=== PATIENT | female | born 1955 | race Hispanic/Latino ===

== ENCOUNTER 2016-11-01 09:04 | Day surgery (SDC) | payer MEDICAID ==
[2016-11-01 09:32] VITALS: RESP 18
[2016-11-01 09:34] VITALS: BMI 23.8
[2016-11-01] MEDS ORDERED: Lactated Ringer's 1,000 ML IV ONE ×2 (09:40)
[2016-11-01] MEDS: Iohexol 300 10 ML ONE ×2 (09:47→10:15)
[2016-11-01] MEDS: Bupivacaine HCl 0.25% PF (10 ml) Inj ONE ×2 (09:47→10:15)
[2016-11-01] MEDS: methylPREDNISolone Depo 80 mg/ml Inj ONE ×2 (09:48→10:15)
[2016-11-01] MEDS: Lidocaine 1% Inj (20ml) ONE ×2 (09:48→10:15)
[2016-11-01] MEDS ORDERED: Propofol 10 mg/ml Inj (20 ML) ONE ×2 (09:59→10:07)
[2016-11-01] MEDS ORDERED: Bupivacaine HCl 0.25% PF (10 ml) Inj ONE (10:04)
[2016-11-01] MEDS ORDERED: HYDROmorphone 0.5 mg/0.5 ml ISec IVP PRN (10:49)
[2016-11-01 11:00] VITALS: O2SAT 100
[2016-11-01] MEDS ORDERED: Lactated Ringer's 1,000 ML IV SCH (11:00)
[2016-11-01] MEDS ORDERED: HYDROmorphone 0.5 mg/0.5 ml ISec IVP ONE ×2 (11:15→11:45)
[2016-11-01 14:05] VITALS: BP 112/67; PULSE 74; TEMP 97.4
--- NOTE | 2016-11-01 14:41 | RAD ---
PROCEDURE: Lumbar Epidural Injection HISTORY: PAIN MANAGEMENT TECHNIQUE: Fluoroscopic guidance was provided for epidural injection for pain management purposes. FINDINGS: IMPRESSION: Fluoroscopic guidance provided for epidural injection. Please refer procedure.
--- NOTE | 2016-11-01 17:54 | OP ---
PROCEDURE DATE: 11/01/2016 PREOPERATIVE DIAGNOSIS: Left leg complex regional pain syndrome. POSTOPERATIVE DIAGNOSIS: Left leg complex regional pain syndrome. PROCEDURE: Left lumbar sympathetic nerve block at L2 and L3. ANESTHESIOLOGIST: Dr. Tucker. SURGEON: Dr. Liang. ANESTHESIA TYPE: Monitored anesthesia care. COMPLICATIONS: None. SPECIMEN: None. PROCEDURE: After re-discussion of the procedure with the patient including its risks, benefits, alte rnatives, outcome data, possibility of no effect or increased pain, the patient consented to the proc edure. She denies any recent infections, bleeding tendencies, or being on anticoagulants. The decis ion was then made to proceed to the OR. The patient was placed on the fluoroscopy table in a prone position with 2 pillows underneath her abd omen. The back was prepped and draped in a usual sterile fashion and sterile technique was adhered t o during the entire procedure. The L2 and L3 vertebral levels were first identified in anterior-post erior view. Then, slight oblique angle towards the left at approximately 12 degrees was obtained to identify the safety triangle for this procedure. The triangle consists of anterior border of the christian tebral body on the lateral side and the transverse process in the inferior side and the superior nigel cular process on the medial side. The skin overlying the triangle at both L2 and L3 levels was then infiltrated with 1% lidocaine using a 25 gauge needle. Subsequently, a 22 gauge 5 inch spinal needle was then incrementally advanced under fluoroscopic guidance towards the target until bony contact wa s made. At this point, the fluoroscopy was returned to and anteroposterior view, which showed the ti p of the needle to be at the lateral border of the vertebral body. The fluoroscopy was then turned t owards a lateral view and the needle advancement was done in this orientation until the tip of the ne edle lay within 0.5 cm anterior to the anterior border of the vertebral body. Then the fluoroscope r eturned to the anteroposterior view showing the tip of the needle to be underneath the pedicle at bot h levels. After appropriate placement of both needles, approximately 1 mL of Isovue contrast was inj ected showing appropriate spread without any signs of CSF or intravenous involvement. At this point, approximately 10 mL of ____% Marcaine mixed with Depo-Medrol was gradually injected in 3 mL interval s into each level. At the end of the case, needles were removed and patient's back was clean and dry and Band-Aids were applied. The patient was then transferred to recovery area in good condition without any signs of FOLDER AND NOTCHER toxicity or any neurological deficits. She will have a followup in office in approximately 2-4 weeks. En-Zach Liang MD cc: [id number] TT: 11/01/2016 17:53:32 jn
== END 2016-11-01 14:30 | disposition home or self-care (01) ==
LOC: H.OPSURG 09:04
PROVIDERS: ATTEND Anesthesiology
DX: G90.50 Complex regional pain syndrome I, unspecified (principal)

== ENCOUNTER 2016-12-13 09:52 | Day surgery (SDC) | payer MEDICAID ==
[2016-12-13 10:32] VITALS: BMI 24.3
[2016-12-13 10:36] VITALS: RESP 18
[2016-12-13] MEDS ORDERED: methylPREDNISolone Depo 80 mg/ml Inj ONE (12:56)
[2016-12-13] MEDS ORDERED: Lidocaine 1% Inj (20ml) ONE (12:57)
[2016-12-13] MEDS ORDERED: Bupivacaine HCl 0.25% PF (10 ml) Inj ONE (12:57)
[2016-12-13] MEDS ORDERED: Iohexol 300 10 ML ONE (12:57)
[2016-12-13] MEDS ORDERED: Lidocaine 1% Inj (20ml) IJ ONE (13:42)
[2016-12-13] MEDS ORDERED: Lactated Ringer's 1,000 ML IV ONE (13:44)
[2016-12-13] MEDS ORDERED: methylPREDNISolone Depo 80 mg/ml Inj IM ONE (13:44)
[2016-12-13] MEDS ORDERED: Bupivacaine HCl 0.25% PF (10 ml) Inj IJ ONE (13:44)
[2016-12-13] MEDS ORDERED: Iohexol 300 10 ML IJ ONE (13:44)
[2016-12-13] MEDS ORDERED: HYDROmorphone 0.5 mg/0.5 ml ISec ONE (14:11)
[2016-12-13] MEDS: HYDROmorphone 0.5 mg/0.5 ml ISec IVP PRN ×2 (14:25→14:58)
[2016-12-13] MEDS ORDERED: Lactated Ringer's 1,000 ML IV SCH (14:27)
[2016-12-13 15:22] VITALS: TEMP 97.8
[2016-12-13 15:39] VITALS: BP 142/76; PULSE 85; O2SAT 98
--- NOTE | 2016-12-13 15:59 | RAD ---
PROCEDURE: Epidural spine injection HISTORY: PAIN MANAGEMENT COMPARISON: None TECHNIQUE: Standard protocol for this study/examination. FINDINGS: Total fluoroscopic time (continuous mode) utilized during the procedure: 27.9 seconds. IMPRESSION: Submitted images from the current procedure: 1.0
--- NOTE | 2016-12-15 07:57 | PCM.OP ---
Operative Report - Operative Report Date of Surgery/Procedure: 12/13/16 Time of Surgery/Procedure: 14:30 Surgeon: Garth Anesthesia/Sedation: Monitored Anesthesia Care Pre-Operative Diagnosis: Left arm CRPS Post-Operative Diagnosis: Same Indication for Surgery: Intractable Pain Operative Findings: After discussion of the procedure with the patient including its risks benefits alternatives the possibility of no effect or increased pain, patient consented to the procedure. She denies any recent infections bleeding tendencies or being on anticoagulants decision was then made to proceed to the OR. The patient was placed on a fluoroscopy table in a supine position with shoulder mobility between her shoulder blades. The left neck was then prepped and draped in the usual sterile fashion and sterile technique was psychiatric entire procedure. The left moderate of the left stellate ganglion block as at the intersection of the vertebral body and transverse process C6 vertebrae. This was identified on the anterior and posterior view of the fluoroscopy. The skin overlying this area was infiltrated with 1% lidocaine using a 25-gauge needle. Subsequently a 25-gauge 3-1/2 inch spinal needle was then inserted perpendicular to the skin until bony contact was made. Care was used to infiltrate the trachea and esophagus and also in the blood vessels. This was confirmed by negative aspiration treating the advancement of the needle. After bony contact with the target was made and after negative aspiration approximately 1 mL of Isovue contrast was injected showing appropriate spread without any signs of CSF or intravenous informant. There were also no air aspirated back. At this point approximately 10 mL over 30 % Marcaine and Depo-Medrol mixture was gradually injected under fluoroscopy view. At the end of the procedure needles was removed the patient's neck was cleaned and dried Band-Aids were applied. Patient was transferred to recovery area in good conditions without any signs of COTTON EXPERT toxicity or any neurological deficit. She'll follow up in office in approximately 2-4 weeks. End of dictation Procedure/Operation Description: Left Stellate Ganglion block Estimated Blood Loss: None. Complications: None. Discharge & Condition: Stable for discharge to home.
== END 2016-12-13 16:20 | disposition home or self-care (01) ==
LOC: H.OPSURG 09:52
PROVIDERS: ATTEND Anesthesiology
DX: G90.50 Complex regional pain syndrome I, unspecified (principal)

== ENCOUNTER 2017-03-07 10:41 | Day surgery (SDC) | payer MEDICAID ==
[2017-03-07 11:05] VITALS: RESP 18
[2017-03-07] MEDS ORDERED: Dexamethasone 4 mg/1 ml ONE (11:13)
[2017-03-07] MEDS ORDERED: Bupivacaine HCl 0.25% PF (10 ml) Inj ONE (11:13)
[2017-03-07] MEDS ORDERED: Iohexol 300 10 ML ONE (11:13)
[2017-03-07 11:14] VITALS: BMI 23.5
[2017-03-07] MEDS ORDERED: Propofol 10 mg/ml Inj (20 ML) ONE (11:25)
[2017-03-07] MEDS ORDERED: Lactated Ringer's 1,000 ML IV ONE (11:33)
[2017-03-07] MEDS ORDERED: Midazolam 2 MG/2 ML VIAL ONE (11:34)
[2017-03-07] MEDS ORDERED: Bupivacaine HCl 0.25% PF (10 ml) Inj IJ ONE (11:45)
[2017-03-07] MEDS ORDERED: Iohexol 300 10 ML IJ ONE (11:45)
[2017-03-07] MEDS ORDERED: Lidocaine 4% MPF 5 ML IJ ONE (11:45)
[2017-03-07] MEDS ORDERED: HYDROmorphone 0.5 mg/0.5 ml ISec ONE (12:12)
[2017-03-07] MEDS: HYDROmorphone 0.5 mg/0.5 ml ISec IVP PRN ×4 (12:12→12:53)
--- NOTE | 2017-03-07 14:38 | RAD ---
PROCEDURE: Cervical epidural injection HISTORY: PAIN MANAGEMENT COMPARISON: None TECHNIQUE: Standard protocol for this study/examination. FINDINGS: Total fluoroscopic time (continuous mode) utilized during the procedure: 23.7 seconds. Submitted images from the current procedure: 2.0 IMPRESSION: Less than 1 hr fluoroscopic time utilized during performance of the procedure.
[2017-03-07 15:57] VITALS: BP 120/60; PULSE 74; TEMP 97.2; O2SAT 100
--- NOTE | 2017-03-07 20:16 | OP ---
PROCEDURE DATE: 03/07/2017 PREOPERATIVE DIAGNOSIS: Left arm and face complex regional pain syndrome. POSTOPERATIVE DIAGNOSIS: Left arm and face complex regional pain syndrome. PROCEDURES: Left sphenopalatine ganglion block and left stellate ganglion block. ANESTHESIA ADMINISTERED BY: Dr. Kurtz. SURGEON: Dr. Liang. TYPE OF ANESTHESIA: Monitored anesthesia care. COMPLICATIONS: None. SPECIMEN: None. DESCRIPTION OF PROCEDURE: After re-discussion of the procedure with the patient including its risks, benefits, alternatives, outcome data, possibility of no effect or increased pain, the patient consented to the procedure. She denied any recent infection, bleeding tendencies or being on anticoagulants; a decision was then made to proceed to the OR. The patient was placed on a fluoroscopy table in a supine position with a shoulder roll underneath her shoulder blades. The neck was prepped and draped in the usual sterile fashion and sterile technique was adhered during the entire procedure. The skin overlying the C6 pedicle was then infiltrated with 1% lidocaine using a 25-gauge needle. The target of this injection was at the transition point of the vertebral body and the transverse process on the left C6 pedicle. A 25-gauge 3-1/2-inch spinal needle was then incrementally advanced under fluoroscopic guidance until bony contact was made with the target region. Care was taken to not encroach upon the space of the trachea, esophagus and also, pulsatile arterial pulse of the left carotid. After appropriate placement of the needle, approximately 1 mL of Isovue contrast was injected showing appropriate spread without any signs of CSF or intravenous involvement. At this point approximately, 10 mL of a 0.25% Marcaine and Decadron mixture was gradually injected. Slight pressure was applied proximal to the needle to further enhance the medication spread down to the thoracic region. The needle was then removed. At this point, a 1-1/2-inch Angiocath attached to a 3 mL syringe was then carefully inserted into the patient's left naris. At the sign of first resistance, approximately 1 mL of 4% lidocaine was gently applied through the angiocatheter. The patient's neck and head were maintained in an extended position for approximately 5 minutes after the application of the medication. At the end of the case, the patient's neck was then cleaned and dried and bandage was applied. The patient was then transferred to recovery area in good condition without any signs of TRAY FILLER toxicity or any neurological deficit. She will have a followup in office in approximately 2-5 weeks. En-Zach Liang MD
== END 2017-03-07 15:45 | disposition home or self-care (01) ==
LOC: H.OPSURG 10:41
PROVIDERS: ATTEND Anesthesiology
DX: G90.50 Complex regional pain syndrome I, unspecified (principal)
CPT/HCPCS: 64505; 64510; J1100; J1170; J2250; J2405; J2704; J3010; J7120; J8540; Q9967

== ENCOUNTER 2017-08-24 10:58 | Day surgery (SDC) | payer MEDICAID ==
[2017-08-24] MEDS ORDERED: Iohexol 300 10 ML ONE (11:49)
[2017-08-24] MEDS ORDERED: Bupivacaine HCl 0.25% PF (10 ml) Inj ONE (11:50)
[2017-08-24] MEDS ORDERED: MethylPREDNISolone Depo 40 mg/ml Inj ONE (11:50)
[2017-08-24] MEDS ORDERED: Lidocaine 1% Inj (20ml) ONE (11:50)
[2017-08-24 12:01] VITALS: BMI 25.5
[2017-08-24] MEDS ORDERED: Midazolam 2 MG/2 ML VIAL ONE (12:19)
[2017-08-24] MEDS ORDERED: Propofol 10 mg/ml Inj (20 ML) ONE (12:19)
[2017-08-24] MEDS ORDERED: Sodium Chloride 0.9% 500 ML IV ONE (12:20)
[2017-08-24] MEDS ORDERED: HYDROmorphone 0.5 mg/0.5 ml ISec ONE (12:50)
[2017-08-24] MEDS: HYDROmorphone 0.5 mg/0.5 ml ISec IVP PRN ×3 (12:55→13:25)
--- NOTE | 2017-08-24 14:04 | RAD ---
PROCEDURE: Intraoperative Fluoroscopy. HISTORY: PAIN MANAGEMENT FINDINGS: Fluoroscopic assistance was provided. 22. Seconds of fluoroscopy time utilized during this procedure. Radiation dose = 4.7 mGy. Please refer to the operative report from ROBERT Menchaca.
[2017-08-24 14:21] VITALS: RESP 18; TEMP 98; O2SAT 96
[2017-08-24 15:30] VITALS: BP 120/70; PULSE 63
--- NOTE | 2017-08-24 19:39 | OP ---
PROCEDURE DATE: 08/24/2017 PREOPERATIVE DIAGNOSIS: Right arm complex regional pain syndrome. POSTOPERATIVE DIAGNOSIS: Right arm complex regional pain syndrome. PROCEDURE: Right stellate ganglion block. SURGEON: Lacey Liang MD TYPE OF ANESTHESIA: Monitored anesthesia care. ANESTHESIA ADMINISTERED BY: Dr. Kurtz. COMPLICATIONS: None. SPECIMEN: None. DESCRIPTION OF PROCEDURE: After we had discussion of the procedure with the patient including its risks, benefits, alternatives, outcome data, possibility of no effects or increased pain, the patient consented to the procedure. She denies any recent infection, bleeding tendencies or being on anticoagulants and decision was then made to proceed to the OR. The patient was placed on the fluoroscopy table in a supine position with shoulder roll underneath her shoulder . The neck was prepped and draped in a usual sterile fashion and sterile technique was adhered during the entire procedure. The target for the stellate ganglion block is at the border of the vertebral body and the transverse process at the level of C6 on the right side. The skin overlying this area was then infiltrated with 1% lidocaine. Then, a 25-gauge inch spinal needle was incrementally advanced under fluoroscopic guidance until bony contact was made with the target. Care was taken to avoid the carotid pulse and also from midline structures such as esophagus and trachea. After appropriate placement of the needle, approximately 1 mL of Isovue contrast was injected to rule out any inadvertent uptake of contrast. After satisfactory spread of the contrast down to the T1 level approximately 10 mL of 0.25% Marcaine and Depo-Medrol mixture was gradually injected. At the end of procedure, the needle was removed and the patient's neck was cleaned and dried and bandages were applied. The patient was then transferred to the recovery area in good condition without any signs of TEAR DOWN MAN toxicity or any neurological deficits. She will be following in the office in approximately 2 to 4 weeks. Lacey Liang MD
== END 2017-08-24 15:15 | disposition home or self-care (01) ==
LOC: H.OPSURG 10:58
PROVIDERS: ATTEND Anesthesiology
DX: G90.50 Complex regional pain syndrome I, unspecified (principal)
CPT/HCPCS: 64510; J1030; J1170; J2001; J2250; J2704; J3010; J7040; Q9967

== ENCOUNTER 2017-09-28 06:36 | Day surgery (SDC) | payer MEDICAID ==
[2017-09-28 07:34] VITALS: BMI 25.8
[2017-09-28] MEDS ORDERED: Lactated Ringer's 1,000 ML IV ONE (08:00)
[2017-09-28] MEDS ORDERED: methylPREDNISolone Depo 80 mg/ml Inj ONE (08:04)
[2017-09-28] MEDS ORDERED: Iohexol 300 10 ML ONE (08:05)
[2017-09-28] MEDS ORDERED: Lidocaine Hydrochloride 1% 10 ML ONE (08:06)
[2017-09-28] MEDS ORDERED: Bupivacaine HCl 0.5% PF (30 ml) Inj ONE (08:13)
[2017-09-28] MEDS ORDERED: Propofol 10 mg/ml Inj (20 ML) ONE (08:16)
[2017-09-28] MEDS ORDERED: Iohexol 300 10 ML IJ ONE (08:20)
[2017-09-28] MEDS ORDERED: methylPREDNISolone Depo 80 mg/ml Inj IM ONE (08:20)
[2017-09-28] MEDS ORDERED: Bupivacaine HCl 0.25% PF (10 ml) Inj IJ ONE (08:20)
[2017-09-28] MEDS ORDERED: Lidocaine 1% Inj (20ml) IJ ONE (08:20)
[2017-09-28] MEDS ORDERED: Morphine 4 MG/ML VIAL ONE (08:56)
[2017-09-28] MEDS ORDERED: Lactated Ringer's 1,000 ML IV SCH (09:15)
[2017-09-28 11:12] VITALS: TEMP 97.5
[2017-09-28 11:18] VITALS: BP 119/85; PULSE 83; RESP 20
--- NOTE | 2017-09-28 13:54 | OP ---
PROCEDURE DATE: 09/28/2017 PREOPERATIVE DIAGNOSES: Right lower leg complex regional pain syndrome and left-sided headache. PROCEDURE: Right lumbar sympathetic nerve block and also left sphenopalatine nerve block. SURGEON: Lacey Liang MD ANESTHESIOLOGIST: Godwin Leung MD TYPE OF ANESTHESIA: Monitored anesthesia care. COMPLICATIONS: None. SPECIMENS: None. DESCRIPTION OF PROCEDURE: As follows. After we had discussion of the procedure with the patient including its risks, benefits, alternatives, outcome data, possibility of no effects, and increased pain, the patient consented to the procedure. She denied any recent infection, bleeding tendencies or being on anticoagulants, the decision was then made to proceed to the OR. The patient was placed on a fluoroscopy table in a prone position with 2 pillows underneath her abdomen. The back was prepped and draped in a usual sterile fashion and a sterile technique was adhered to during the entire procedure. The target of the block is at the L1 and L2 vertebral levels. After those two vertebral levels were identified, towards the right at approximately 15 degrees was obtained and the target is at the superolateral quadrant of the vertebral body flanked by the superior articular process to the left and transverse process towards the bottom. The skin overlying the two above-targeted areas was infiltrated with 1% lidocaine using a 25-gauge needle. Subsequently, a 22-gauge 5 inch spinal needle was incrementally advanced under fluoroscopic guidance until tip of needle made bony contact with the vertebral body. Care was taken to avoid the spinal cord stimulator battery during the insertion of the two needles. After bony contact was made, a quick anterior-posterior view was obtained to verify the needle positioning. Then, the needle advancement was done under lateral fluoroscopy view. The needle was advanced slowly until tip of the needle is approximately 5 mm above the anterior vertebral body on the lateral fluoroscopy view. Then, the anterior-posterior view was obtained to verify the needle to the slightly medial to the pedicle at both vertebral bodies. After negative aspiration, approximately 0.5 mL of Isovue contrast was injected showing appropriate spread without any signs of intravenous involvement. At this point, approximately 10 mL of 0.25% Marcaine and Depo-Medrol mixture was injected slowly into each needle. The needle was then removed. The patient was then transferred onto the stretcher in a supine position. Q-tip soaked with 0.5% Marcaine was then carefully inserted into the patient's left naris until resistance was met. Then it was left in place for approximately 10 minutes, it was removed, and the patient was then transferred to the recovery area in good condition without any signs of MANAGER PRICING toxicity or any signs of neurological deficits. At this point, she will be discharged with a followup in our office in approximately 2 to 4 weeks. En-Zach Liang MD
[2017-09-28 14:25] VITALS: O2SAT 97
--- NOTE | 2017-10-01 08:19 | RAD ---
PROCEDURE: Lumbar Epidural Injection HISTORY: PAIN MANAGEMENT TECHNIQUE: Fluoroscopic guidance was provided for epidural injection for pain management purposes. 62.2 seconds of fluoroscopy was utilized with a cumulative radiation dose of 20.06 mGy. FINDINGS: Spot fluoroscopic images demonstrate opacification in the region of the left lateral epidural space at the approximate T 12, L1 and L2 levels. IMPRESSION: Fluoroscopic guidance provided for epidural injection. Please refer to the report from ROBERT Menchaca for further elaboration on the procedure.
== END 2017-09-28 13:00 | disposition home or self-care (01) ==
LOC: H.OPSURG 06:36
PROVIDERS: ATTEND Anesthesiology
DX: G90.50 Complex regional pain syndrome I, unspecified (principal); G24.9 Dystonia, unspecified
CPT/HCPCS: 64505; 64520; J1040; J2001; J2270; J2704; J3010; J7120; Q9967

== ENCOUNTER 2017-11-09 08:10 | Day surgery (SDC) | payer MEDICAID ==
[2017-11-09] MEDS ORDERED: Dexamethasone 4 mg/1 ml ONE (08:44)
[2017-11-09] MEDS ORDERED: Bupivacaine HCl 0.25% PF (10 ml) Inj ONE (08:45)
[2017-11-09] MEDS ORDERED: Iohexol 300 10 ML ONE (08:45)
[2017-11-09] MEDS ORDERED: Lidocaine 1% 5ml Abboject IV ONE (08:46)
[2017-11-09] MEDS ORDERED: Midazolam 2 MG/2 ML VIAL ONE (08:46)
[2017-11-09] MEDS ORDERED: Propofol 10 mg/ml Inj (20 ML) ONE (08:46)
[2017-11-09 08:57] VITALS: BMI 25.0
[2017-11-09] MEDS ORDERED: Lactated Ringer's 1,000 ML IV ONE ×2 (09:08→11:05)
[2017-11-09] MEDS ORDERED: Bupivacaine HCl 0.25% PF (10 ml) Inj IJ ONE (09:17)
[2017-11-09] MEDS ORDERED: Dexamethasone 4 mg/1 ml IM ONE (09:17)
[2017-11-09] MEDS ORDERED: Iohexol 300 10 ML IJ ONE (09:17)
[2017-11-09] MEDS ORDERED: HYDROmorphone 0.5 mg/0.5 ml ISec IVP PRN (09:25)
[2017-11-09] MEDS ORDERED: Lactated Ringer's 1,000 ML IV SCH ×3 (09:30→10:25)
[2017-11-09 12:46] VITALS: RESP 18
[2017-11-09 13:29] VITALS: BP 120/60; PULSE 80; TEMP 98; O2SAT 99
--- NOTE | 2017-11-09 13:34 | OP ---
PROCEDURE DATE: 11/09/2017 PREOPERATIVE DIAGNOSIS: Left face and arm complex regional pain syndrome. POSTOPERATIVE DIAGNOSIS: Left face and arm complex regional pain syndrome. PROCEDURE: Left stellate ganglion block and left sphenopalatine nerve block. SURGEON: Lacey Liang MD ANESTHESIOLOGIST: Paulino Hernandez MD TYPE OF ANESTHESIA: Monitored anesthesia care. COMPLICATIONS: None. SPECIMENS: None. DESCRIPTION OF PROCEDURE: As follows. After we had discussion of the procedure with the patient including its risks, benefits, alternatives, outcome data, possibility of no effect or increased pain, the patient consented to the procedure. She denied any recent infection, bleeding tendencies or being on anticoagulants; a decision was then made to proceed to the OR. The patient was placed on a fluoroscopy table in a supine position with a shoulder roll underneath her shoulder blades. The neck was prepped and draped in the usual sterile fashion and sterile technique was adhered during the entire procedure. Under the anterior and posterior view, the C6 vertebrae on the left side was identified. The target is at the border of the transverse process on the left side. Care was taken to avoid the trachea and esophagus drained the insertion of the needle. After identification of the target, the skin overlying this area was then infiltrated with 1% lidocaine using 25-gauge needle. Subsequently, a 25-gauge 3.5-inch spinal needle was incrementally advanced under fluoroscopic guidance until the tip of the needle made bony contact with the target area. Aspiration was carried out and did not return any blood and CSF. At this point, approximately 1 mL of Isovue contrast was injected showing appropriate spread without any signs of CSF or intravenous uptake. At this point, approximately 10 mL of Decadron and 0.25% Marcaine mixture was gradually injected. At the end of the procedure, the needle was removed. Then, using a Q-tip, which was soaked with lidocaine, the Q-tip was inserted into the left naris until resistance was met. The Q-tip was left in place for approximately 5 minutes for the sphenopalatine ganglion block. The Q-tip was then removed and the patient's neck was cleaned and dried, and bandage was applied. The patient was then transferred to recovery area in good condition without any signs of SANDING SUPERVISOR toxicity or any neurological deficits. She will a followup in our office in approximately 2 to 4 weeks. EnAngel Liang MD [facility] # [id number]
--- NOTE | 2017-11-13 13:07 | RAD ---
PROCEDURE: Fluoroscopy up to 1 hr. HISTORY: PAIN MANAGEMENT COMPARISON: None TECHNIQUE: Standard protocol for this study/examination. FINDINGS: Total fluoroscopic time (continuous mode) utilized during the procedure 29.7 (seconds). Total exam DLP: (mGy) 5.53 IMPRESSION: Less than 1 hr fluoroscopic time utilized during performance of the procedure.
== END 2017-11-09 15:00 | disposition home or self-care (01) ==
LOC: H.OPSURG 08:10
PROVIDERS: ATTEND Anesthesiology
DX: G90.50 Complex regional pain syndrome I, unspecified (principal)
CPT/HCPCS: 64510; J1100; J1170; J2250; J2704; J7120; Q9967

== ENCOUNTER 2018-02-27 09:39 | Day surgery (SDC) | payer MEDICAID ==
[2018-02-27 10:15] VITALS: BMI 24.1
[2018-02-27] MEDS ORDERED: Iohexol 300 10 ML ONE (10:15)
[2018-02-27] MEDS ORDERED: MethylPREDNISolone Depo 40 mg/ml Inj ONE (10:15)
[2018-02-27] MEDS ORDERED: Midazolam 2 MG/2 ML VIAL ONE (10:41)
[2018-02-27] MEDS ORDERED: Lidocaine 1% 5ml Abboject IV ONE (10:41)
[2018-02-27] MEDS ORDERED: Propofol 10 mg/ml Inj (20 ML) ONE (10:41)
[2018-02-27] MEDS ORDERED: Lactated Ringer's 1,000 ML IV ONE (10:45)
[2018-02-27] MEDS ORDERED: Bupivacaine 0.5% Inj(30mL) IJ ONE (11:00)
[2018-02-27] MEDS ORDERED: Lactated Ringer's 1,000 ML IV SCH (11:15)
[2018-02-27 12:32] VITALS: PULSE 80
[2018-02-27 12:44] VITALS: BP 129/89; RESP 18; TEMP 97.8; O2SAT 99
--- NOTE | 2018-02-27 22:57 | OP ---
PROCEDURE DATE: 02/27/2018 PREOPERATIVE DIAGNOSIS: Left arm and face complex regional pain syndrome. POSTOPERATIVE DIAGNOSIS: Left arm and face complex regional pain syndrome. PROCEDURE: Left stellate ganglion nerve block and left sphenopalatine ganglion block. ANESTHESIA ADMINISTERED BY: Paulino Hernandez MD SURGEON: Lacey Liang MD TYPE OF ANESTHESIA: Monitored anesthesia care. COMPLICATIONS: None. SPECIMEN: None. DESCRIPTION OF PROCEDURE: After we had discussion of the procedure with the patient including its risks, benefits, alternatives, outcome data, and possibility of no effect or increased pain, the patient consented to the procedure. She denies any recent infection, bleeding tendencies, or being on anticoagulants. A decision was then made to proceed to the OR. The patient was placed on the fluoroscopic table in a supine position with A shoulder roll underneath her shoulder blades. The neck was prepped and draped in the usual sterile fashion, and a sterile technique was adhered during the entire procedure. The target is at C6 vertebral level at the border of transverse process and the vertebral body. The vital structures were palpated and care was taken not to puncture these structures. The skin overlying this area was then infiltrated with 1% lidocaine using a 25-gauge needle. Subsequently, a 25-gauge 3-1/2-inch spinal needle was inserted perpendicular to the skin until bony contact was made with the C6 vertebral body along the transverse process on the left side. After negative aspiration for blood or air, approximately 1 mL of Isovue contrast was injected showing appropriate spread without any signs of CSF or intravenous uptake. After appropriate placement of the needle, approximately 12 mL of 0.25% Marcaine and Depo-Medrol mixture was gradually injected. The needle was then removed. Then Q-tip was soaked in 0.5% Marcaine, and this was inserted into the left naris until resistance was met. The Q-tip was then kept in position for approximately 5 minutes. Then it was removed in the Recovery subsequently. At the end of procedure, the patient tolerated the procedure well and the neck was cleaned and dried and bandage was applied. The patient was then transferred to the recovery area in good condition without any signs of HARDBOARD SUPERVISOR toxicity or any neurological deficit. She will be following in the office in approximately two to four weeks. En-Zach Liang MD [facility] # [id number]
--- NOTE | 2018-02-28 14:25 | RAD ---
Date of service: 02/27/2018 PROCEDURE: Fluoroscopy up to 1 hr. HISTORY: PAIN MANAGEMENT COMPARISON: None TECHNIQUE: Standard protocol for this study/examination. FINDINGS: Total fluoroscopic time (continuous mode) utilized during the procedure 60.3 (seconds). Total exam DLP: 5.97 (mGy). IMPRESSION: Less than 1 hr fluoroscopic assistance provided during performance of the procedure.
== END 2018-02-27 14:10 | disposition home or self-care (01) ==
LOC: H.OPSURG 09:39
PROVIDERS: ATTEND Anesthesiology
DX: G90.512 Complex regional pain syndrome I of left upper limb (principal); M19.90 Unspecified osteoarthritis, unspecified site; K21.9 Gastro-esophageal reflux disease without esophagitis; F41.9 Anxiety disorder, unspecified; G24.9 Dystonia, unspecified
CPT/HCPCS: 64510; J1030; J1170; J2250; J2704; J3010; J7120; Q9967

== ENCOUNTER 2018-06-14 06:08 | Day surgery (SDC) | payer MEDICAID ==
[2018-06-14 07:21] VITALS: BMI 25.0
[2018-06-14] MEDS ORDERED: Bupivacaine HCl 0.5% PF (30 ml) Inj ONE (08:58)
[2018-06-14] MEDS ORDERED: methylPREDNISolone Depo 80 mg/ml Inj ONE (08:58)
[2018-06-14] MEDS ORDERED: Iohexol 300 10 ML ONE (08:59)
[2018-06-14] MEDS ORDERED: Lactated Ringer's 1,000 ML IV ONE (09:15)
[2018-06-14] MEDS ORDERED: Propofol 10 mg/ml Inj (20 ML) ONE ×3 (09:25→09:44)
[2018-06-14] MEDS ORDERED: Iohexol 240 (10 ml) IVP ONE (09:28)
[2018-06-14] MEDS ORDERED: Bupivacaine HCl 0.5% PF (30 ml) Inj IJ ONE (09:28)
[2018-06-14] MEDS ORDERED: methylPREDNISolone Depo 80 mg/ml Inj IM ONE (09:29)
[2018-06-14] MEDS ORDERED: Dexamethasone 4 mg/1 ml IM ONE (09:42)
[2018-06-14] MEDS ORDERED: Dexamethasone 4 mg/1 ml ONE (09:43)
[2018-06-14] MEDS ORDERED: Lactated Ringer's 500 ML IV SCH (10:00)
[2018-06-14] MEDS ORDERED: HYDROmorphone 0.5 mg/0.5 ml ISec ONE ×2 (10:13→10:30)
[2018-06-14 11:50] VITALS: RESP 18
[2018-06-14 13:37] VITALS: BP 151/67; PULSE 88; TEMP 97.8; O2SAT 97
--- NOTE | 2018-06-14 14:34 | RAD ---
Date of service: 06/14/2018 PROCEDURE: Intraoperative Fluoroscopy. HISTORY: PAIN MANAGEMENT FINDINGS: Fluoroscopic assistance was provided. Fluoroscopy time = 102.9 sec. Radiation dose = 23.51 mGy. Please refer to the operative report from ROBERT Menchaca.
--- NOTE | 2018-06-14 20:59 | OP ---
PROCEDURE DATE: 06/14/2018 PREOPERATIVE DIAGNOSIS: Left arm complex regional pain syndrome. POSTOPERATIVE DIAGNOSIS: Left arm complex regional pain syndrome. PROCEDURE: Left stellate ganglion block. SURGEON: Lacey Liang MD ANESTHESIA: Monitored anesthesia care. ANESTHESIOLOGIST: . COMPLICATIONS: None. SPECIMEN: None. DESCRIPTION OF PROCEDURE: Procedure is as follows: After discussion of the procedure with the patient including its risks, benefits, alternatives, outcome data, possibility of no effect or increased pain, the patient consented to the procedure. She denies any recent infection, bleeding tendencies, or being on anticoagulants. Decision was then made to proceed to the OR. The patient was placed on a fluoroscopy table in a supine position with a shoulder roll underneath her chest. The left neck was prepped and draped in the usual sterile fashion and sterile technique was adherent to during the entire procedure. The target of the block is at the junction of the vertebral body and transverse process of the C6 vertebra on the left. The skin overlying this area was then infiltrated with 1% lidocaine using 25-gauge needle. Then, the carotid pulse on the left was palpated and needle placement was made medial to this. After bony contact was made, the needle was withdrawn slightly. At this point, approximately 0.5 mL of Isovue contrast was injected to confirm needle placement. The needle was repositioned until the appropriate contrast spread was obtained. Epidural, CSF, and intravascular involvement was ruled out by the contrast advancement. After appropriate placement of the needle, approximately 10 mL of 0.25% Marcaine and Depo-Medrol mixture was gradually injected. The needle was then removed and the patient's neck was clean and dry bandage was applied. The patient was then transferred to the recovery area in good condition without any signs of MOVIE WRITER toxicity or any neurological deficits. She will be followed in the office in approximately 2-4 weeks. Lacey Liang MD
== END 2018-06-14 15:00 | disposition home or self-care (01) ==
LOC: H.OPSURG 06:08
PROVIDERS: ATTEND Anesthesiology
DX: G90.50 Complex regional pain syndrome I, unspecified (principal); M54.9 Dorsalgia, unspecified
CPT/HCPCS: 64510; J1040; J1100; J1170; J2001; J2704; J7120; Q9966; Q9967

== ENCOUNTER 2018-11-01 13:49 | Observation (INO) | payer MEDICAID ==
[2018-11-01] MEDS ORDERED: Sodium Chloride 0.9% 1,000 ML IV STA (13:59)
--- NOTE | 2018-11-01 14:06 | ED PDOC ---
HPI: General Adult Time Seen by Provider: 11/01/18 13:58 Chief Complaint (Nursing): Palpitations Chief Complaint (Provider): palpitations History Per: Patient History/Exam Limitations: no limitations Onset/Duration Of Symptoms: Days (today) Additional Complaint(s): Pt. was out same day surgery getting an injection by Dr. Liang for her hip. After the procedure pt. HR was going up and down so EKG done and showed afib. Pt. sent to the ER accordingly for further evaluation and treatment. Pt. states for past few weeks she gets chest pain and palpitations off and on when exercising. Pt. also get dizziness with those symptoms. Pt. has no numbness, tingles. Has chronic pain and cramps to legs. Not ambulating much recently due to pain and cramps. No dyspnea, abd pain, nausea, vomit, cough. Never had afib in the past. Past Medical History Reviewed: Nursing Documentation, Vital Signs - Medical History PMH: Anxiety, Back Problems, Chronic Pain Denies: Chronic Kidney Disease Other PMH: CRD - Surgical History Surgical History: Appendectomy, Back Surgery ("Back Fusion"), Cholecystectomy - Family History Family History: States: Unknown Family Hx - Home Medications Home Medications: Ambulatory Orders Medication Instructions Recorded Cholecalciferol (Vitamin D3) 5,000 unit PO DAILY 06/19/14 [Vitamin D3] Hydromorphone HCl [Dilaudid] 4 mg PO Q8 PRN 09/25/14 Amitriptyline [Elavil] 25 mg PO HS 08/16/16 Biotin 3 mg PO BID 11/01/16 Conjugated Estrogens [Premarin] 0.5 mg PO DAILY 11/01/16 Acetaminophen/Oxycodone Hydr 10 - 325 mg PO Q8 09/28/17 [Percocet 10/325 mg Tab] - Allergies Allergies/Adverse Reactions: Allergies Allergy/AdvReac Type Severity Reaction Status Date / Time gabapentin [From Neurontin] Allergy SWELLING Verified 11/01/18 13:54 pregabalin [From Lyrica] Allergy VOMITING Verified 11/01/18 13:54 Review of Systems ROS Statement: Except As Marked, All Systems Reviewed And Found Negative Cardiovascular: Positive for: Chest Pain, Palpitations, Light Headedness Neurological: Positive for: Dizziness Physical Exam - Reviewed Nursing Documentation Reviewed: Yes Vital Signs Reviewed: Yes - Physical Exam Appears: Positive for: Non-toxic, No Acute Distress Head Exam: Positive for: ATRAUMATIC, NORMAL INSPECTION, NORMOCEPHALIC Skin: Positive for: Normal Color, Warm, DRY Eye Exam: Positive for: EOMI, Normal appearance, PERRL ENT: Positive for: Normal ENT Inspection Neck: Positive for: Normal, Painless ROM Cardiovascular/Chest: Positive for: Tachycardia, Irregularly Irregular Respiratory: Positive for: Normal Breath Sounds. Negative for: Respiratory Distress Gastrointestinal/Abdominal: Positive for: Normal Exam, Soft. Negative for: Tenderness Back: Positive for: Normal Inspection. Negative for: L CVA Tenderness, R CVA Tenderness Extremity: Negative for: Normal ROM (decreased due to chronic pains in both legs), Calf Tenderness Neurological/Psych: Positive for: Awake, Alert, Normal Tone, cost recorder II-XII (wnk). Negative for: Facial Droop - Laboratory Results Result Diagrams: 11/01/18 14:17 - ECG ECG: Positive for: Interpreted By Me, Viewed By Me ECG Rhythm: Positive for: Normal QRS, Normal ST Segment, Sinus Rhythm Interpretation Of ECG: EKG in post op: afib. - Progress ED Course And Treament: 1408: Pt. given dilaudid 2.5mg prior to arrival. 1442: Spoke with [facility] resident for Dr. Quinn. Will admit tele. Pt. not in afib. Likely had transient afib. Will hold any additional blood thinners and anti-arrhythmics. Chest pain free. Disposition - Clinical Impression Clinical Impression: Chest pain, Afib - Patient ED Disposition Is Patient to be Admitted: No Counseled Patient/Family Regarding: Studies Performed, Diagnosis - Disposition Disposition Time: 13:54 Condition: FAIR - Pt Status Changed To: Hospital Disposition Of: Observation - POA Present On Arrival: None
[2018-11-01 14:34] LABS: BASO % 0.6 % (0.0-2.0); EOS % 0.8 % (0.0-4.0); LYMPH # 1.6 K/uL (1.0-4.3); LYMPH % 25.2 % (20.0-40.0); MEAN CELL VOLUME 94.1 fl (81.0-99.0); MEAN CORPUSCULAR HEMOGLOBIN 32.2 pg (27.0-31.0); MEAN CORPUSCULAR HGB CONC 34.2 g/dL (33.0-37.0); MEAN PLATELET VOLUME 9.3 fl (7.2-11.7); MONO # 0.4 K/uL (0.0-0.8); MONO % 5.6 % (0.0-10.0); NEUT # 4.3 K/uL (1.8-7.0); NEUT % 67.8 % (50.0-75.0); NRBC % 0.1 % (0.0-0.0); RBC 4.34 Mil/uL (3.80-5.20); RED CELL DISTRIBUTION WIDTH 12.7 % (11.5-14.5); WHITE BLOOD COUNT 6.3 K/uL (4.8-10.8)
[2018-11-01 14:36] LABS: INR 1.1; PROTHROMBIN TIME 12.5 Seconds (9.8-13.1)
[2018-11-01 14:38] LABS: PARTIAL THROMBOPLASTIN TIME 33.4 Seconds (25.6-37.1)
[2018-11-01 14:55] LABS: BLOOD UREA NITROGEN 12 mg/dl (7-17); CALCIUM 8.6 mg/dL (8.4-10.2); GFR NON-AFRICAN AMERICAN > 60
[2018-11-01 15:08] LABS: ALB/GLOB RATIO 1.3 (1.0-2.1); ALBUMIN 4.4 g/dL (3.5-5.0); ALT/SGPT 16 U/L (9-52); AST/SGOT 43 U/L (14-36)
[2018-11-01] MEDS ORDERED: Oxycodone/Acetaminophen 5/325 mg Tab PO PRN (15:28)
--- NOTE | 2018-11-01 16:09 | RAD ---
Date of service: 11/01/2018 HISTORY: Atrial fibrillation. COMPARISON: 06/29/2015 FINDINGS: LUNGS: No active pulmonary disease. PLEURA: No significant pleural effusion identified, no pneumothorax apparent. CARDIOVASCULAR: No atherosclerotic calcification present Normal. OSSEOUS STRUCTURES: No significant abnormalities. VISUALIZED UPPER ABDOMEN: Normal. OTHER FINDINGS: Neuro stimulator device again identified IMPRESSION: No active disease. No significant interval change compared to the prior examination(s).
--- NOTE | 2018-11-01 16:37 | CP.PCM.HP ---
<Jake Zaldivar - Last Filed: 11/01/18 17:56> History of Present Illness - History of Present Illness History of Present Illness: 63 with PMH of CRPS, Anxiety was sent by Dr. Liang after noting A-fib on monitor while patient receiving injection for tx of chronic pain. Patient report that for past week she have been complaining of SOB, palpitation and pressure on chest. Patient report that she was seen by her PCP 1 week ago due to dysuria and was sent with Po abx for 7 days, and since then she have been same symptoms. Patient unsure if this is due to new abx or due to anxiety attack which she have often. Patient also state that for past couple of month she have heat intolerance, and some weight change which she attribute to CRPS. Patient have no complains, she denies fever, chills, nausea, vomiting, cough, abdominal pain, diarrhea, constipaton, or any other symptoms. ALlergy: Gabapentin, Pregabalin PCP: Jon Reaves PMH: CRPS , anxiety Medication: Percocet, dialaudid Social: denies smoking drinking or drug use. ROS: Negative except mentioned. ED Vitals: 66hr, 111/70, RR 17 , 100 ox EKG: A-fib x1, monitor WNL Aspirin 325mg, hydromorphone 2mg IV Fluid Patient admitted to telemetry for evaluation of ACS Present on Admission - Present on Admission Any Indicators Present on Admission: No Review of Systems - Review of Systems All systems: reviewed and no additional remarkable complaints except - Breasts Breasts: As Per HPI - Cardiovascular Cardiovascular: Chest Pain - Respiratory Respiratory: As Per HPI - Gastrointestinal Gastrointestinal: As Per HPI - Genitourinary Genitourinary: As Per HPI - Reproductive: Female Reproductive:Female: As Per HPI - Menstruation Menstruation: As Per HPI - Musculoskeletal Musculoskeletal: As Per HPI - Integumentary Integumentary: As Per HPI Past Patient History - Infectious Disease Hx of Infectious Diseases: None - Past Medical History & Family History Past Medical History?: Yes - Past Social History Smoking Status: Never Smoked - PULMONARY Hx Respiratory Disorders: No - NEUROLOGICAL Hx Neurological Disorder: Yes Other/Comment: Complex Regional Pain Syndrome (RSD). Dystonia - HEENT Hx HEENT Problems: No - RENAL Hx Chronic Kidney Disease: No - ENDOCRINE/METABOLIC Hx Endocrine Disorders: No - HEMATOLOGICAL/ONCOLOGICAL Hx Blood Disorders: No Hx Blood Transfusions: No - INTEGUMENTARY Hx Dermatological Problems: No Hx Sawyer: Yes - GENITOURINARY/GYNECOLOGICAL Hx Genitourinary Disorders: No Other/Comment: Hx Uterine Fibroids and Ovarian Cysts - PSYCHIATRIC Hx Anxiety: Yes - SURGICAL HISTORY Hx Appendectomy: Yes Hx Cholecystectomy: Yes - ANESTHESIA Hx Anesthesia: Yes Hx Anesthesia Reactions: No Hx Malignant Hyperthermia: No Meds Home Medications: Home Medication List Medication Instructions Recorded Confirmed Type Apixaban [Eliquis] 5 mg PO BID #60 tablet 11/02/18 Rx Allergies/Adverse Reactions: Allergies Allergy/AdvReac Type Severity Reaction Status Date / Time gabapentin [From Neurontin] Allergy SWELLING Verified 11/01/18 13:54 pregabalin [From Lyrica] Allergy VOMITING Verified 11/01/18 13:54 Physical Exam - Constitutional Appears: Well, Non-toxic, No Acute Distress - Head Exam Head Exam: ATRAUMATIC, NORMAL INSPECTION, NORMOCEPHALIC - Eye Exam Eye Exam: EOMI, Normal appearance, PERRL Pupil Exam: NORMAL ACCOMODATION, PERRL - ENT Exam ENT Exam: Mucous Membranes Moist, Normal Exam - Neck Exam Neck exam: Positive for: Normal Inspection - Respiratory Exam Respiratory Exam: Clear to Auscultation Bilateral, NORMAL BREATHING PATTERN - Cardiovascular Exam Cardiovascular Exam: REGULAR RHYTHM, +S1, +S2 - GI/Abdominal Exam GI & Abdominal Exam: Normal Bowel Sounds, Soft - Extremities Exam Additional comments: dorsalflexion of foot. - Neurological Exam Neurological exam: Alert, Normal Gait, Oriented x3, Reflexes Normal - Psychiatric Exam Psychiatric exam: Normal Affect, Normal Mood - Skin Skin Exam: Dry, Intact, Normal Color, Warm Results - Vital Signs Recent Vital Signs: Last Vital Signs Temp 97.9 F 11/01/18 14:03 Pulse 61 11/01/18 13:54 Resp 16 11/01/18 13:54 BP 119/74 11/01/18 13:54 Pulse Ox 100 11/01/18 13:54 - Labs Result Diagrams: 11/01/18 14:17 11/01/18 14:17 Labs: Laboratory Results - last 24 hr 11/01/18 11/01/18 11/01/18 14:17 14:17 14:17 WBC 6.3 RBC 4.34 Hgb 14.0 Hct 40.9 MCV 94.1 MCH 32.2 H MCHC 34.2 RDW 12.7 Plt Count 203 MPV 9.3 Neut % (Auto) 67.8 Lymph % (Auto) 25.2 [place] % (Auto) 5.6 Eos % (Auto) 0.8 Baso % (Auto) 0.6 Neut # (Auto) 4.3 Lymph # (Auto) 1.6 [place] # (Auto) 0.4 Eos # (Auto) 0.0 Baso # (Auto) 0.0 PT 12.5 INR 1.1 APTT 33.4 Sodium 136 Potassium 4.7 Chloride 99 Carbon Dioxide 29 Anion Gap 13 BUN 12 Creatinine 0.5 L Est GFR ( Amer) > 60 Est GFR (Non-Af Amer) > 60 POC Glucose (mg/dL) Random Glucose 104 Calcium 8.6 Phosphorus 4.2 Magnesium 2.0 Total Bilirubin 0.8 AST 43 H ALT 16 Alkaline Phosphatase 48 Troponin I < 0.0120 Total Protein 7.8 Albumin 4.4 Globulin 3.4 Albumin/Globulin Ratio 1.3 11/01/18 15:29 WBC RBC Hgb Hct MCV MCH MCHC RDW Plt Count MPV Neut % (Auto) Lymph % (Auto) [place] % (Auto) Eos % (Auto) Baso % (Auto) Neut # (Auto) Lymph # (Auto) [place] # (Auto) Eos # (Auto) Baso # (Auto) PT INR APTT Sodium Potassium Chloride Carbon Dioxide Anion Gap BUN Creatinine Est GFR ( Amer) Est GFR (Non-Af Amer) POC Glucose (mg/dL) 94 Random Glucose Calcium Phosphorus Magnesium Total Bilirubin AST ALT Alkaline Phosphatase Troponin I Total Protein Albumin Globulin Albumin/Globulin Ratio Assessment & Plan - Assessment and Plan (Free Text) Assessment: 63 with PMH of CRPS, Anxiety was sent by Dr. Liang after noting A-fib on monitor while patient receiving injection for tx of chronic pain. Patient report that for past week she have been complaining of SOB, palpitation and pressure on chest. Admitted to Telemetry to Evaluate for ACS New onset of A-Fib evaluate for ACS EKG : A-fib once Chest xray negative Echo normal Trop neg CBC/CMP PT/PTT WNL TSH WNL CHAD2=0 Continue monitoring CRPS Percocet 5/325 mg PRn pain Diet Regular diet DVT prophylaxis Heparin 40 SC <Mi Hwang - Last Filed: 11/02/18 12:44> Results - Vital Signs Recent Vital Signs: Last Vital Signs Temp 97.9 F 11/02/18 12:06 Pulse 74 11/02/18 12:06 Resp 18 11/02/18 12:06 BP 120/73 11/02/18 12:06 Pulse Ox 95 11/02/18 12:06 - Labs Result Diagrams: 11/01/18 14:17 11/01/18 14:17 Labs: Laboratory Results - last 24 hr 11/01/18 11/01/18 11/01/18 14:17 14:17 14:17 WBC 6.3 RBC 4.34 Hgb 14.0 Hct 40.9 MCV 94.1 MCH 32.2 H MCHC 34.2 RDW 12.7 Plt Count 203 MPV 9.3 Neut % (Auto) 67.8 Lymph % (Auto) 25.2 [place] % (Auto) 5.6 Eos % (Auto) 0.8 Baso % (Auto) 0.6 Neut # (Auto) 4.3 Lymph # (Auto) 1.6 [place] # (Auto) 0.4 Eos # (Auto) 0.0 Baso # (Auto) 0.0 PT 12.5 INR 1.1 APTT 33.4 Sodium 136 Potassium 4.7 Chloride 99 Carbon Dioxide 29 Anion Gap 13 BUN 12 Creatinine 0.5 L Est GFR ( Amer) > 60 Est GFR (Non-Af Amer) > 60 POC Glucose (mg/dL) Random Glucose 104 Calcium 8.6 Phosphorus 4.2 Magnesium 2.0 Total Bilirubin 0.8 AST 43 H ALT 16 Alkaline Phosphatase 48 Troponin I < 0.0120 Total Protein 7.8 Albumin 4.4 Globulin 3.4 Albumin/Globulin Ratio 1.3 TSH 3rd Generation 2.05 11/01/18 11/01/18 11/02/18 15:29 20:21 02:45 WBC RBC Hgb Hct MCV MCH MCHC RDW Plt Count MPV Neut % (Auto) Lymph % (Auto) [place] % (Auto) Eos % (Auto) Baso % (Auto) Neut # (Auto) Lymph # (Auto) [place] # (Auto) Eos # (Auto) Baso # (Auto) PT INR APTT Sodium Potassium Chloride Carbon Dioxide Anion Gap BUN Creatinine Est GFR ( Amer) Est GFR (Non-Af Amer) POC Glucose (mg/dL) 94 Random Glucose Calcium Phosphorus Magnesium Total Bilirubin AST ALT Alkaline Phosphatase Troponin I < 0.0120 < 0.0120 Total Protein Albumin Globulin Albumin/Globulin Ratio TSH 3rd Generation Attending/Attestation - Attestation I have personally seen and examined this patient.: Yes I have fully participated in the care of the patient.: Yes I have reviewed all pertinent clinical information: Yes Notes (Text): New Onset Paroxysmal Atrial Fibrillation Chronic Pain from Complex Regional Pain Syndrome Anxiety Sinus Bradycardia, asymptomatic - A Fib resolved, discussed with Dr Nuzhat Freed - recommended anticoagulation with Eliquis. Discussed benefits and risks of anticoagulation with pt and she agreed to be started. - ff up with Dr Quinn next wk, ff up with Cardio in 1-2 wks
--- NOTE | 2018-11-01 17:34 | CARD ---
APPROVED REPORT Date of service: 11/01/2018 EXAM: Two-dimensional and M-mode echocardiogram with Doppler and color Doppler. Other Information Quality : GoodRhythm : NSR INDICATION Atrial Fibrillation 2D DIMENSIONS IVSd1.27 (0.7-1.1cm)LVDd3.72 (3.9-5.9cm) LVOT Diameter1.90 (1.8-2.4cm)PWd0.97 (0.7-1.1cm) IVSs1.37 (0.8-1.2cm)LVDs2.57 (2.5-4.0cm) FS (%) 31.0 %PWs1.22 (0.8-1.2cm) M-Mode DIMENSIONS Left Atrium (MM)3.11 (2.5-4.0cm)IVSd0.82 (0.7-1.1cm) Aortic Root3.22 (2.2-3.7cm)LVDd4.43 (4.0-5.6cm) Aortic Cusp Exc.1.83 (1.5-2.0cm)PWd0.98 (0.7-1.1cm) IVSs1.54 cmFS (%) 52 % LVDs2.14 (2.0-3.8cm)PWs1.44 cm Aortic Valve AoV Peak Hvhtvjtx119.7cm/sAoV VTI29.8cmAO Peak GR.6mmHg LVOT Peak Bkfrkkbs50.9cm/sLVOT VTI19.11cmAO Mean GR.3mmHg AUTUMN (VMAX)1.06cv2JJK (VTI)1.03cm2 Mitral Valve MV E Jqgxbwnv839.6cm/sMV DECEL [id number] A Bjejiqxg71.9cm/s MV YAN44lpP/A ratio1.3MVA (PHT)3.36cm2 TDI Lateral E' Peak V8.72cm/sMedial E' Peak V13.61cm/sE/Lateral E'11.5 E/Medial E'7.4 LEFT VENTRICLE The left ventricle is normal size. There is normal left ventricular wall thickness. The left ventricular systolic function is normal. The estimated ejection fraction is 55-60% No regional wall motion abnormalities noted.. The left ventricular diastolic function is normal. No left ventricle thrombus noted on this study. There is no ventricular septal defect visualized. There is no left ventricular aneurysm. There is no mass noted in the left ventricle. RIGHT VENTRICLE The right ventricle is normal size. There is normal right ventricular wall thickness. The right ventricular systolic function is normal. ATRIA The left atrium size is normal. The right atrium size is normal. The interatrial septum is intact with no evidence for an atrial septal defect. AORTIC VALVE The aortic valve is normal in structure. No aortic regurgitation is present. There is no aortic valvular stenosis. There is no aortic valvular vegetation. MITRAL VALVE The mitral valve is normal in structure. There is no evidence of mitral valve prolapse. There is no mitral valve stenosis. There is no mitral valve regurgitation noted. TRICUSPID VALVE The tricuspid valve is normal in structure. There is no tricuspid valve regurgitation noted. There is no tricuspid valve prolapse or vegetation. There is no tricuspid valve stenosis. PULMONIC VALVE The pulmonary valve is normal in structure. There is no pulmonic valvular regurgitation. There is no pulmonic valvular stenosis. GREAT VESSELS The aortic root is normal in size. The ascending aorta is normal in size. The pulmonary artery is normal. The IVC is normal in size and collapses >50% with inspiration. PERICARDIAL EFFUSION There is no pericardial effusion. There is no pleural effusion. <Conclusion> The estimated ejection fraction is 55-60% The left ventricular diastolic function is normal. The left atrium size is normal. There is no significant tricuspid valve regurgitation noted.
[2018-11-01] MEDS ORDERED: Pneumococcal 23-Valent Vaccine IM ONE (18:54)
[2018-11-02 05:00] VITALS: BMI 23.5
[2018-11-02 08:09] VITALS: RESP 18; TEMP 97.9
--- NOTE | 2018-11-02 08:59 | CP.PCM.CON ---
History of Present Illness - History of Present Illness History of Present Illness: 29-year-old female who has chronic regional pain syndrome and describes recurrent bouts of severe pains for which she is being treated by pain management physicians, was found to have atrial fibrillation yesterday and promptly sent to the emergency room where she spontaneously converted to sinus rhythm and her telemetry ever since shows steady sinus rhythm with rare isolated premature atrial beats. She is most of the time moderately bradycardic and during sleep last night had a heart rate as low as 38 bpm. She gives history of vigorously exercising between 3 to 4 hours every day for last 5 to 6 years. She is not hypertensive or diabetic or a smoker and has never suffered effort related chest pain or myocardial infarction. She has had his spinal stimulator implanted couple of years back. She has had surgery on cervical spine. She does have anxiety disorder partly as a consequence of chronic pain. She denies any episode of syncope but has had palpitations off and on. Physical examination shows a young female who is quite alert awake coherent afebrile. Her heart rate was 56 bpm regular and her blood pressure was 114/70 mmHg. Her jugular venous pressure was not elevated and there was no edema over her lower extremity. The pedal pulses were well felt. The apex was in the fifth space the first and second heart sounds were normal there was no murmur or gallop. There were no rales. Her electrocardiogram prior to going to the emergency room shows atrial fibrillation with rapid heart rate. An electrocardiogram obtained in the emergency room shows sinus rhythm and normal EKG pattern. An echocardiogram done yesterday shows normal left ventricular systolic function with no evidence of valvular disease. Left atrial size was normal. Lab data was noted her TSH was normal. Impression: Transient atrial fibrillation in a patient with chronic regional pain syndrome and anxiety disorder. Given her age and sex the patient should be chronically anticoagulated and I have recommended Eliquis 5 mg twice a day. The patient may be allowed to return home and continue with her normal activit ies. I have explained to her the option of ablation if she so desires. Past Patient History - Infectious Disease Hx of Infectious Diseases: None - Past Medical History & Family History Past Medical History?: Yes - Past Social History Smoking Status: Never Smoked - PULMONARY Hx Respiratory Disorders: No - NEUROLOGICAL Hx Neurological Disorder: Yes Other/Comment: Complex Regional Pain Syndrome (RSD). Dystonia - HEENT Hx HEENT Problems: No - RENAL Hx Chronic Kidney Disease: No - ENDOCRINE/METABOLIC Hx Endocrine Disorders: No - HEMATOLOGICAL/ONCOLOGICAL Hx Blood Disorders: No Hx Blood Transfusions: No - INTEGUMENTARY Hx Dermatological Problems: No Hx Sawyer: Yes - MUSCULOSKELETAL/RHEUMATOLOGICAL Hx Falls: No - GENITOURINARY/GYNECOLOGICAL Hx Genitourinary Disorders: No Other/Comment: Hx Uterine Fibroids and Ovarian Cysts - PSYCHIATRIC Hx Anxiety: Yes Hx Substance Use: No - SURGICAL HISTORY Hx Appendectomy: Yes Hx Cholecystectomy: Yes - ANESTHESIA Hx Anesthesia: Yes Hx Anesthesia Reactions: No Hx Malignant Hyperthermia: No Meds Allergies/Adverse Reactions: Allergies Allergy/AdvReac Type Severity Reaction Status Date / Time gabapentin [From Neurontin] Allergy SWELLING Verified 11/01/18 13:54 pregabalin [From Lyrica] Allergy VOMITING Verified 11/01/18 13:54 - Medications Medications: Current Medications Amitriptyline HCl (Elavil) 50 mg PO HS KEELY Last Admin: 11/02/18 00:36 Dose: 50 mg Enoxaparin Sodium (Lovenox) 40 mg SC DAILY KEELY; Protocol Hydromorphone HCl (Dilaudid) 4 mg PO Q8 PRN PRN Reason: Pain, severe (8-10) Last Admin: 11/02/18 01:50 Dose: 4 mg Ondansetron HCl (Zofran Tab) 4 mg PO Q6 PRN PRN Reason: Nausea/Vomiting Last Admin: 11/02/18 01:51 Dose: 4 mg Oxycodone HCl (Oxycodone Immediate Release Tab) 10 mg PO Q6 PRN PRN Reason: Pain, moderate (4-7) Oxycodone/Acetaminophen (Percocet 5/325 Mg Tab) 1 tab PO Q4 PRN PRN Reason: Pain, severe (8-10) Stop: 11/04/18 15:29 Results - Vital Signs Recent Vital Signs: Last Vital Signs Temp 97.9 F 11/02/18 08:08 Pulse 49 L 11/02/18 08:08 Resp 18 11/02/18 08:08 BP 111/67 11/02/18 08:08 Pulse Ox 100 11/02/18 08:08 - Labs Result Diagrams: 11/01/18 14:17 11/01/18 14:17 Labs: Laboratory Results - last 24 hr 11/01/18 11/01/1819 14:17 14:17 14:17 WBC 6.3 RBC 4.34 Hgb 14.0 Hct 40.9 MCV 94.1 MCH 32.2 H MCHC 34.2 RDW 12.7 Plt Count 203 MPV 9.3 Neut % (Auto) 67.8 Lymph % (Auto) 25.2 [place] % (Auto) 5.6 Eos % (Auto) 0.8 Baso % (Auto) 0.6 Neut # (Auto) 4.3 Lymph # (Auto) 1.6 [place] # (Auto) 0.4 Eos # (Auto) 0.0 Baso # (Auto) 0.0 PT 12.5 INR 1.1 APTT 33.4 Sodium 136 Potassium 4.7 Chloride 99 Carbon Dioxide 29 Anion Gap 13 BUN 12 Creatinine 0.5 L Est GFR ( Amer) > 60 Est GFR (Non-Af Amer) > 60 POC Glucose (mg/dL) Random Glucose 104 Calcium 8.6 Phosphorus 4.2 Magnesium 2.0 Total Bilirubin 0.8 AST 43 H ALT 16 Alkaline Phosphatase 48 Troponin I < 0.0120 Total Protein 7.8 Albumin 4.4 Globulin 3.4 Albumin/Globulin Ratio 1.3 TSH 3rd Generation 2.05 11/01/18 11/01/18 11/02/18 15:29 20:21 02:45 WBC RBC Hgb Hct MCV MCH MCHC RDW Plt Count MPV Neut % (Auto) Lymph % (Auto) [place] % (Auto) Eos % (Auto) Baso % (Auto) Neut # (Auto) Lymph # (Auto) [place] # (Auto) Eos # (Auto) Baso # (Auto) PT INR APTT Sodium Potassium Chloride Carbon Dioxide Anion Gap BUN Creatinine Est GFR ( Amer) Est GFR (Non-Af Amer) POC Glucose (mg/dL) 94 Random Glucose Calcium Phosphorus Magnesium Total Bilirubin AST ALT Alkaline Phosphatase Troponin I < 0.0120 < 0.0120 Total Protein Albumin Globulin Albumin/Globulin Ratio TSH 3rd Generation
[2018-11-02] MEDS ORDERED: Enoxaparin 40 mg Syringe SC SCH ×2 (09:00)
[2018-11-02] MEDS: oxyCODONE 10 mg Immediate Release Tab PO PRN ×2 (09:53→15:25)
--- NOTE | 2018-11-02 11:23 | CP.PCM.DIS ---
Provider - Provider Date of Admission: 11/01/18 14:28 Attending physician: Jon Quinn MD Consults: 11/01/18 16:01 Cardiology Consult Stat Comment: Consulting Provider: Julio Freed V Consulting Physician: Julio Freed V Reason for Consult: New diagnosis of A-fib Time Spent in preparation of Discharge (in minutes): 20 Diagnosis - Discharge Diagnosis (1) Afib Status: Acute Hospital Course - Lab Results Lab Results: Most Recent Lab Values WBC 6.3 K/uL (4.8-10.8) 11/01/18 14:17 RBC 4.34 Mil/uL (3.80-5.20) 11/01/18 14:17 Hgb 14.0 g/dL (12.0-16.0) 11/01/18 14:17 Hct 40.9 % (34.0-47.0) 11/01/18 14:17 MCV 94.1 fl (81.0-99.0) 11/01/18 14:17 MCH 32.2 pg (27.0-31.0) H 11/01/18 14:17 MCHC 34.2 g/dL (33.0-37.0) 11/01/18 14:17 RDW 12.7 % (11.5-14.5) 11/01/18 14:17 Plt Count 203 K/uL (130-400) 11/01/18 14:17 MPV 9.3 fl (7.2-11.7) 11/01/18 14:17 Neut % (Auto) 67.8 % (50.0-75.0) 11/01/18 14:17 Lymph % (Auto) 25.2 % (20.0-40.0) 11/01/18 14:17 [place] % (Auto) 5.6 % (0.0-10.0) 11/01/18 14:17 Eos % (Auto) 0.8 % (0.0-4.0) 11/01/18 14:17 Baso % (Auto) 0.6 % (0.0-2.0) 11/01/18 14:17 Neut # (Auto) 4.3 K/uL (1.8-7.0) 11/01/18 14:17 Lymph # (Auto) 1.6 K/uL (1.0-4.3) 11/01/18 14:17 [place] # (Auto) 0.4 K/uL (0.0-0.8) 11/01/18 14:17 Eos # (Auto) 0.0 K/uL (0.0-0.7) 11/01/18 14:17 Baso # (Auto) 0.0 K/uL (0.0-0.2) 11/01/18 14:17 PT 12.5 Seconds (9.8-13.1) 11/01/18 14:17 INR 1.1 11/01/18 14:17 APTT 33.4 Seconds (25.6-37.1) 11/01/18 14:17 Sodium 136 mmol/l (132-148) 11/01/18 14:17 Potassium 4.7 MMOL/L (3.6-5.0) 11/01/18 14:17 Chloride 99 mmol/L (98-107) 11/01/18 14:17 Carbon Dioxide 29 mmol/L (22-30) 11/01/18 14:17 Anion Gap 13 (10-20) 11/01/18 14:17 BUN 12 mg/dl (7-17) 11/01/18 14:17 Creatinine 0.5 mg/dl (0.7-1.2) L 11/01/18 14:17 Est GFR ( Amer) > 60 11/01/18 14:17 Est GFR (Non-Af Amer) > 60 11/01/18 14:17 POC Glucose (mg/dL) 94 mg/dL (65-110) 11/01/18 15:29 Random Glucose 104 mg/dL (65-105) 11/01/18 14:17 Calcium 8.6 mg/dL (8.4-10.2) 11/01/18 14:17 Phosphorus 4.2 mg/dl (2.5-4.5) 11/01/18 14:17 Magnesium 2.0 MG/DL (1.6-2.3) 11/01/18 14:17 Total Bilirubin 0.8 mg/dl (0.2-1.3) 11/01/18 14:17 AST 43 U/L (14-36) H 11/01/18 14:17 ALT 16 U/L (9-52) 11/01/18 14:17 Alkaline Phosphatase 48 U/L (38-126) 11/01/18 14:17 Troponin I < 0.0120 ng/mL (0.00-0.120) 11/02/18 02:45 Total Protein 7.8 G/DL (6.3-8.2) 11/01/18 14:17 Albumin 4.4 g/dL (3.5-5.0) 11/01/18 14:17 Globulin 3.4 gm/dL (2.2-3.9) 11/01/18 14:17 Albumin/Globulin Ratio 1.3 (1.0-2.1) 11/01/18 14:17 TSH 3rd Generation 2.05 mIU/ML (0.46-4.68) 11/01/18 14:17 - Hospital Course Hospital Course: 63 with PMH of CRPS, Anxiety was sent by Dr. Liang after noting A-fib on monitor while patient receiving injection for tx of chronic pain. Patient report that for past week she have been complaining of SOB, palpitation and pressure on chest. Admitted to Telemetry to Evaluate for ACS. Trop neg x3, EKG normalized except bradycardia, echo normal, TSH normal, ChAD2= 2( patient about to turn 64). Cardiology consulted, and recommended Eliquis 5mg BID daily and can be discharged home. Patient seen and examined today at bedside. no acute event overnight. Patient will be discharged today with Eliquis 5mg BID. Patient need to follow up with PCP. ER precaution given to Patient about Eliquis MEdication to be Dc on Eliquis 5mg BID Follow up PCP Discharge Exam - Head Exam Head Exam: ATRAUMATIC, NORMAL INSPECTION, NORMOCEPHALIC - Eye Exam Eye Exam: EOMI, Normal appearance, PERRL Pupil Exam: NORMAL ACCOMODATION, PERRL - Respiratory Exam Respiratory Exam: Clear to PA & Lateral, NORMAL BREATHING PATTERN, UNREMARKABLE - Cardiovascular Exam Cardiovascular Exam: REGULAR RHYTHM, +S1, +S2 - GI/Abdominal Exam GI & Abdominal Exam: Normal Bowel Sounds, Unremarkable - Neurological Exam Neurological exam: Alert, Oriented x3 - Psychiatric Exam Psychiatric exam: Normal Affect, Normal Mood - Skin Skin Exam: Dry, Intact, Normal Color, Warm Discharge Plan - Discharge Medications Prescriptions: Apixaban [Eliquis] 5 mg PO BID #60 tablet - Follow Up Plan Condition: FAIR Disposition: HOME/ ROUTINE
[2018-11-02 12:06] VITALS: BP 120/73; PULSE 74; O2SAT 95
--- NOTE | 2018-11-02 15:38 | CARD ---
APPROVED REPORT Date of service: 11/01/2018 EKG Measurement Heart [id number] <Conclusion> Sinus bradycardia with sinus arrhythmia Otherwise normal ECG
--- NOTE | 2018-11-02 16:48 | RAD ---
Date of service: 11/01/2018 PROCEDURE: Intraoperative Fluoroscopy. HISTORY: PAIN MANAGEMENT FINDINGS: Fluoroscopic assistance was provided for pain management. Please refer to the operative report from STANLEY Serra. Total fluoroscopic time (continuous mode) utilized during the procedure 21.7 seconds. Total exam DLP: 5.39 (mGy).
== END 2018-11-02 18:10 | disposition home or self-care (01) ==
LOC: H.ER 13:49 → H.ERHOLD 14:28 → H.TEL 18:15
PROVIDERS: ADMIT Family Medicine; ATTEND Family Medicine
DX: I48.0 Paroxysmal atrial fibrillation (principal); Z79.01 Long term (current) use of anticoagulants; G90.50 Complex regional pain syndrome I, unspecified; Z90.49 Acquired absence of other specified parts of digestive tract; R00.1 Bradycardia, unspecified; R07.9 Chest pain, unspecified; R30.0 Dysuria; R42 Dizziness and giddiness; F41.9 Anxiety disorder, unspecified; G89.4 Chronic pain syndrome
CPT/HCPCS: 36415; 71045; 80053; 82948; 83735; 84100; 84443; 84484; 85025; 85610; 85730; 93005; 93306; 96360; 99285; G0378; J1650; J1885; J7030

== ENCOUNTER → 2018-11-01 | Day surgery (SDC) | payer MEDICAID ==
[~2018-11-01] MED LIST: Bupivacaine HCl 0.5% PF (10 ml) Inj IJ ONE; Bupivacaine HCl 0.5% PF (10 ml) Inj ONE; Bupivacaine HCl 0.5% PF (30 ml) Inj ONE; HYDROmorphone 0.5 mg/0.5 ml ISec ONE; Iohexol 240 (10 ml) IVP ONE; Iohexol 300 10 ML ONE; Lactated Ringer's 1,000 ML IV ONE; Lactated Ringer's 1,000 ML IV SCH; Lidocaine 1% Inj (20ml) IJ ONE; Lidocaine 1% Inj (20ml) ONE; Lidocaine 1% w Epi 1:100,000 Inj ONE; MethylPREDNISolone Depo 40 mg/ml Inj ONE; Midazolam 2 MG/2 ML VIAL ONE; Propofol 10 mg/ml Inj (20 ML) ONE; methylPREDNISolone Depo 80 mg/ml Inj IM ONE; methylPREDNISolone Depo 80 mg/ml Inj ONE
[2018-11-01 10:50] VITALS: O2SAT 99
--- NOTE | 2018-11-01 11:15 | CP.SDSHP ---
Same Day Surgery H & P - History Proposed Procedure: Sacroiliac joint steroid injection Pre-Op Diagnosis: Sacroiliac joint steroid injection - Previous Medical/Surgical History Neuro: Backaches - Allergies Allergies: Allergies gabapentin [From Neurontin] Allergy (Verified 11/01/18 10:25) SWELLING pregabalin [From Lyrica] Allergy (Verified 11/01/18 10:25) VOMITING - Physical Exam Vital Signs: Vital Signs 11/01/18 10:46 Temperature 98.0 F Pulse Rate 65 Respiratory 16 Rate Blood Pressure 105/67 O2 Sat by Pulse 99 Oximetry Mental Status: Alert & Oriented x3 Neuro: WNL Heart: WNL Lungs: WNL GI: WNL - Impression Impression: Sacroiliitis Pt. Evaluated Today:Candidate for Anesthesia & Procedure: Yes Short Stay Discharge - Short Stay Discharge Admitting Diagnosis/Reason for Visit: M46.1 Disposition: HOME/ ROUTINE Referrals: Jon Quinn MD [Primary Care Provider] -
[2018-11-01 11:49] VITALS: BMI 24.5
[2018-11-01] MEDS: HYDROmorphone 0.5 mg/0.5 ml ISec IVP PRN ×5 (12:10→13:00)
[2018-11-01 14:02] VITALS: BP 120/65; PULSE 110; RESP 18; TEMP 97.5
--- NOTE | 2018-11-01 16:37 | CARD ---
APPROVED REPORT Date of service: 11/01/2018 EKG Measurement Heart [id number] <Conclusion> Atrial fibrillation with rapid ventricular response Nonspecific ST abnormality Abnormal ECG
--- NOTE | 2018-11-01 20:56 | OP ---
PROCEDURE DATE: 11/01/2018 PREOPERATIVE DIAGNOSIS: Left sacroiliitis. POSTOPERATIVE DIAGNOSIS: Left sacroiliitis. PROCEDURE: Left sacroiliac joint steroid injection. SURGEON: Lacey Liang MD ANESTHESIA ADMINISTERED BY: Suzie Ferreira MD TYPE OF ANESTHESIA: Monitored anesthesia care. COMPLICATIONS: None. SPECIMEN: None. DESCRIPTION OF PROCEDURE: As follows; after we had the discussion of the procedure with the patient including its risks, benefits, alternatives, outcome data, possibility of no effect or increased pain, the patient consented to the procedure. She denied any recent infection, bleeding tendencies, or being on anticoagulants. A decision was then made to proceed to the OR. The patient was placed on the fluoroscopy table in a prone position with 2 pillows underneath her abdomen. The back was prepped and draped in the usual sterile fashion and sterile technique was adhered to during the entire procedure. The left sacroiliac joint was visualized on anterior and posterior view. The fluoroscopy was turned oblique towards the ipsilateral side at approximately 5 degrees. The target was at the inferior pole of the posterior opening to the left sacroiliac joint. The skin overlying this area was then infiltrated with 1% lidocaine using a 25-gauge needle. Subsequently, a 22-gauge 3.5-inch spinal needle was then incrementally advanced under fluoroscopic guidance until tip of the needle walked into the joint capsule. This was confirmed by injecting approximately 0.5 mL of Isovue contrast. After appropriate spread of the joint line, approximately 3 mL of 0.25% Marcaine and Depo-Medrol mixture was injected. The needle was then removed and then approximately 6 mL of 0.5% Marcaine and Depo-Medrol mixture was then distributed along the medial joint line from inferior pole up to the top of the joint. At the end of the case, the patient's back was cleaned and dry bandage was applied. The patient was then transferred to the recovery area in good conditions without any signs of TOBACCO WEIGHER toxicity or any neurological deficit. She will be followed in our office in approximately two to four weeks. Lacey Liang MD
== END | disposition home or self-care (01) ==
LOC: H.OPSURG 10:07
PROVIDERS: ATTEND Anesthesiology
DX: M46.1 Sacroiliitis, not elsewhere classified (principal); I48.91 Unspecified atrial fibrillation
CPT/HCPCS: 27096; 93005; J1030; J1040; J1170; J2001; J2250; J2704; J3010; J7120; Q9966; Q9967